=== PATIENT | male | born 1980 | race Hispanic/Latino ===

== ENCOUNTER 2024-12-15 17:09 | Emergency (ER) | payer SELFPAY ==
[2024-12-15 17:17] VITALS: BP 140/84
--- NOTE | 2024-12-15 18:26 | ED.MUSCINJ ---
HPI-Injury
General
Chief Complaint: Musculo-Skeletal Complaint
Source: patient
Exam Limitations: none
Time Seen by Provider: 12/15/24 18:14
History of Present Illness-Injury
Initial Injury comments:
44-year-old [id number] male Togolese-speaking only dents complaining of right shoulder pain starting today. He was carrying a heavy object with a coworker and the coworker slipped and he tried to take all the weight of the object and he
fell. He fell down several steps. He complains mainly of right shoulder pain. He also complains of lower back pain. He did not hit his head and denies headache or neck pain. No anticoagulants. No other complaints
Phy Exam
Physical Exam
Physical Exam:
General: Well-appearing male no acute respiratory distress
HEENT: Normocephalic atraumatic
Musculoskeletal exam: Right shoulder tender with deformity arm held in slight abduction with resting on a pillow. The lumbar spine slightly tender to the midline no overlying swelling or ecchymosis
Neurologic: Good sensation to light touch to the right hand and arm
Vascular: 2+ radial pulse right wrist
Injury Course
Orders/Labs/Results
Orders:
Orders
12/15/24 17:33
CR Shoulder, Trauma - Right Urgent
Comment:
Reason For Exam: fall
12/15/24 18:23
HYDROmorphone [Dilaudid] 1 mg .ROUTE .STK-MED ONE
12/15/24 18:25
CR Lumbar Spine 2 Or 3 Views Urgent
Comment:
Reason For Exam: back pain
12/15/24 18:26
HYDROmorphone [Dilaudid] 1 mg IM NOW STA
12/15/24 18:42
CR Shoulder - Right 1 View Urgent
Reason For Exam: post reduction
12/15/24 20:26
Sling Right-Treatment ONCE
MDM/Problems Addressed
Differential Diagnosis Includes:
Patient with right shoulder pain and lower back pain after a fall. Right shoulder is deformed. Question fracture versus dislocation versus both. X-rays right shoulder demonstrate anterior-inferior dislocation of the humerus with Hill-Sachs
deformity. Lumbar spine x-rays pending. Used Togolese-speaking financial [employer] associate to discuss the situation. Patient received a milligram of Dilaudid IM and will attempt to reduce
*Critical Care Note
Total Time (30-74mins, 75-104mins- exclusive of procedures): Not Applicable
Update Note
Update Note:
Initial shoulder x-ray demonstrated inferior anterior dislocation with Hill-Sachs deformity. Patient was given 1 mg IM Dilaudid and the shoulder was reduced using slight longitudinal traction and external rotation. Palpable clunk was felt and pain
was improved. Postreduction films demonstrated successful reduction. A sling was applied. Patient was complaining of lower back pain since the fall and lumbar spine x-rays were ordered which were negative. I suspect contusion to the back.
Recommend ibuprofen and Tylenol follow-up with orthopedics
ED Attending Note
-
Portions of this chart may have been created with voice recognition software.� Occasional wrong word or��sound alike� substitutions may have occurred due to the inherent limitations of voice recognition software.
Discharge Plan
Departure
Patient Disposition: Home (Routine Discharge)
Date of Disposition: 12/15/24
Time of Disposition: 20:27
Patient with high blood pressure during this ER visit?: No
Discharge Problem:
Dislocated shoulder
Instructions: Muscle and Bone Pain (DC)
Referrals:
Amor Juárez MD [Active] -
NONE,* [Family Provider] -
Activity Restrictions/Additional Instructions:
Use ibuprofen or Tylenol for pain. Use sling for support. Follow-up with orthopedics for further evaluation
Use ibuprofeno o Tylenol para el dolor. Use un cabestrillo rosa soporte. Consulte con un especialista en ortopedia para kamila evaluaci�n m�s detallada.
Interventions
Interventions:
*Risk Screen - Suicide Last Done: 12/15/24 17:17
*General Assessment Last Done: 12/15/24 17:17
*Neglect/Abuse Screening Last Done: 12/15/24 17:17
*ED COVID-19 Vaccine History Last Done: 12/15/24 17:17
ED-Musculoskeletal Assessment Last Done: 12/15/24 18:28
Discharge Date and Time
Print Language: GERMAN
[2024-12-15] MEDS: DILAUDID 1 MG IM (18:27)
[2024-12-15 20:41] VITALS: BP 138/79
== END 2024-12-15 20:42 | disposition home or self-care (01) ==
LOC: EMR 17:09
PROVIDERS: EMERGENCY PHYSICIAN Student in an Organized Health Care Education/Training Program
DX: S43.004A Unspecified dislocation of right shoulder joint, initial encounter (principal); W10.9XXA Fall (on) (from) unspecified stairs and steps, initial encounter
CPT/HCPCS: 99283; 23650; 96372; 72100; 73020; 73030